=== PATIENT | male | born 1965 | race Caucasian/White ===

== ENCOUNTER 2019-07-29 17:18 | Emergency (ER) | payer BC, SELFPAY ==
--- NOTE | ~2019-07-29 | CT_ITS ---
EXAMINATION: CT abdomen pelvis wo con DATE: 07/29/2019 17:42 INDICATION: Left flank pain TECHNIQUE: Computed tomography (CT) of the abdomen and pelvis was performed without intravenous contr ast. The dose-length product (DLP) was 446.66 mGy-cm. Automated exposure control and iterative recons truction technique were employed. COMPARISON: None FINDINGS: The lung bases are clear. The heart size is normal. The liver, spleen, pancreas, gallbladde r, and adrenal glands are normal. The right kidney is unremarkable. There is a 3 mm stone in the dist al left ureter which causes mild left hydroureteronephrosis. No pathologically enlarged abdominal or pelvic lymph nodes are identified. There is no free intraperitoneal gas or evidence of bowel obstruct ion. The appendix is normal. There is mild lumbar spondylosis. There is a small fat-containing umbili socrates hernia. IMPRESSION: 1. 3 mm stone of the left distal ureter causing mild left hydroureteronephrosis. Reviewed, dictated and finalized at location A. IMPRESSION: 1. 3 mm stone of the left distal ureter causing mild left hydroureteronephrosis .
--- NOTE | 2019-07-29 17:27 | ED.ABDPAIN ---
HPI - Abdominal Pain General Chief Complaint: Urogenital-Male <Deep Esquivel PA-C - Last Filed: 07/29/19 18:22> Stated Complaint: L flank pain <Deep Esquivel PA-C - Last Filed: 07/29/19 18:22> Time Seen by Provider: 07/29/19 17:21 <Deep Esquivel PA-C - Last Filed: 07/29/19 18:22> Source: patient <Deep Esquivel PA-C - Last Filed: 07/29/19 18:22> Mode of arrival: ambulatory <Deep Esquivel PA-C - Last Filed: 07/29/19 18:22> Limitations: no limitations <PIPPA Vernon Last Filed: 07/29/19 18:22> History of Present Illness HPI narrative: Patient is a 53-year-old male who presents to emergency department for evaluation of acute onset of left flank pain noting sharp stabbing pain to the left flank patient notes no history of similar occurrences has not taken anything for his pain pain is localized mainly to the left lower back radiates into the abdomen has had some emesis. Presents per private vehicle from urgent care denies other complaints <Deep Esquivel PA-C - Last Filed: 07/29/19 18:22> Related Data Allergies/Adverse Reactions: Allergies Allergy/AdvReac Type Severity Reaction Status Date / Time PENICILLIN Allergy Uncoded 03/02/11 06:08 <Deep Esquivel PA-C - Last Filed: 07/29/19 18:22> Review of Systems Review of Systems: All systems reviewed & are unremarkable except as noted in HPI and below <Deep Esquivel PA-C - Last Filed: 07/29/19 18:22> PMFSH Social History Social History: Social History Gender identity (if verbalized by the patient): Male <PIPPA Vernon Last Filed: 07/29/19 18:22> Exam Narrative: Exam Narrative: GENERAL: Well-appearing, well-nourished, and in mild acute pain distress. HEAD: Normocephalic, atraumatic. EYES: PERRLA and EOMI. ENT: Nares clear, no rhinorrhea or epistaxis. Mucous membranes moist. Oropharynx without tonsillar hypertrophy exudate or other lesions. NECK: Supple. No adenopathy or masses. CHEST: Clear to auscultation. No respiratory distress. No wheezes rales or rhonchi HEART: Regular rate and rhythm. No murmur heard. Normal peripheral pulses. ABDOMEN: Soft, nontender, nondistended EXTREMITIES: Normal range of motion. No edema. SKIN: Warm, dry, no rash. NEURO: No focal deficits. Alert and oriented x3. PSYCH: Normal mood and affect. 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 Patient had severe flank pain and went to urgent care with a told him he had blood in his urine and to come to the ER. He is accompanied by his . He claims no medical problems. His kidney stone was diagnosed with CAT scan at 3 mm. He has never had a kidney stone before, his pain is well controlled. He does not have a PCP but he will see his 's PCP Dr. Kennedy. We will refer him to a urologist for follow-up. He was instructed to drink plenty of water take his Flomax antibiotic and pain pills. He works as a dope maintenance worker. 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 <Brigitte Norman MD - Last Filed: 07/29/19 22:11> Vital Signs Vital signs: Vital Signs Temperature 97.9 F 07/29/19 17:33 Pulse Rate 81 07/29/19 17:33 Respiratory Rate 24 H 07/29/19 17:33 Blood Pressure 137/76 07/29/19 17:33 Pulse Oximetry 99 07/29/19 17:33 Temperature 97.9 F 07/29/19 17:33 Pulse Rate 60 07/29/19 18:45 Respiratory Rate 12 07/29/19 18:45 Blood Pressure 136/76 07/29/19 18:45 Pulse Oximetry 99 07/29/19 18:45 <Deep Esquivel PA
[2019-07-29 17:33] VITALS: BP 137/76; PULSE 81; RESP 24; TEMP 36.6; O2SAT 99
[2019-07-29 17:42] LABS: Basophils Absolute Auto 0.1 K/mm3 (0.0-0.1); Basophils Percent Auto 0.5 % (0.2-1.2); Eosinophils Percent Auto 0.2 % (0-4.4); Hematocrit 47.6 % (42.0-52.0); Hemoglobin 16.2 g/dL (14.0-18.0); Immature Granulocyte Absolute 0.06 K/mm3 (0.00-0.031); Immature Granulocyte Percent A 0.5 % (0-0.5); Lymphocytes Percent Auto 7.7 % (18.3-44.2); Mean Corpuscular Hemoglobin 30.1 pg (26-34); Mean Corpuscular Volume 88.5 fl (80-100); Mean Platelet Volume 9.3 fl (7.4-10.4); Monocytes Absolute Auto 0.7 K/mm3 (0.1-0.6); Monocytes Percent Auto 5.5 % (2.6-8.5); Neutrophils Absolute Auto 11.1 K/mm3 (1.3-6.7); Neutrophils Percent Auto 85.6 % (45.5-73.1); Platelet Count Result 223 k/mm3 (150-375); Red Blood Count 5.38 M/mm3 (4.6-6.20); Red Cell Distribution Width 12.7 % (11.5-14.5)
[2019-07-29] MEDS: ONDANSETRON INJ 4 MG/2 ML VIAL IV PUSH (17:46)
[2019-07-29] MEDS: SODIUM CHLORIDE 0.9% IV 1,000 ML 999 ML IV CONT (17:46)
[2019-07-29] MEDS: MORPHINE SULFATE 4 MG/ML INJ IV PUSH (17:46)
[2019-07-29 17:56] LABS: Alanine Aminotransferase 32 U/L (4-50); Albumin Level 4.6 g/dL (3.5-5.1); Alkaline Phosphatase 66 U/L (38-126); Aspartate Amino Transferase 39 U/L (17-59); Bilirubin,Total 0.7 mg/dL (0.2-1.3); Blood Urea Nitrogen 11 mg/dL (9-20); Calcium 9.4 mg/dL (8.4-10.2); Carbon Dioxide 26 mmol/L (22-30); Chloride 102 mmol/L (98-107); Estimated CRCL calculation 93 ml/min; Estimated Glomerular Filt Rate > 60; Glucose 143 mg/dL (75-110); Potassium 4.3 mmol/L (3.4-5.0); Sodium 136 mmol/L (137-145)
[2019-07-29] MEDS: KETOROLAC 30 MG/ML VIAL (*BKC) IV PUSH (18:11)
[2019-07-29] MEDS: TAMSULOSIN HCL 0.4 MG CAPSULE PO (18:11)
[2019-07-29 18:45] VITALS: BP 136/76; PULSE 60; RESP 12; O2SAT 99
== END 2019-07-29 18:47 | disposition home or self-care (01) ==
PROVIDERS: Emergency Medicine Emergency Medical Services; Emergency Provider Emergency Medicine
DX: N13.2 Hydronephrosis with renal and ureteral calculous obstruction (principal); R03.0 Elevated blood-pressure reading, without diagnosis of hypertension; R31.9 Hematuria, unspecified
CPT/HCPCS: 36415; 74176; 80053; 85025; 96374; 96375; 99284; A9270; J0131; J1885; J2270; J2405; J7030